=== PATIENT | male | born 1955 | race Caucasian/White ===

== ENCOUNTER 2020-10-13 13:00 | Emergency (ER) | payer BC, MEDICARE ==
[2020-10-13] MEDS ORDERED: SODIUM CHLORIDE 0.9% 1,000 ML IV STA (13:12)
[2020-10-13 13:55] LABS: Albumin 4.3 g/dL (3.5-5.0); Calcium 9.1 mg/dL (8.4-10.2); Potassium 4.3 mmol/L (3.5-5.1); Total Bilirubin 1.3 mg/dL (0.2-1.3); Total Protein 7.2 g/dL (6.3-8.2)
[2020-10-13 13:59] LABS: INR 0.9 (<1.2); Partial Thromboplastin Time 22.3 sec (22.0-30.0); Prothrombin Time 10.2 sec (9.0-12.0)
[2020-10-13 14:08] LABS: Basophils % (A) 1 %; Eosinophils # (A) 0.1 k/uL (0-0.7); Eosinophils % (A) 1 %; HCT 52.9 % (39.0-53.0); HGB 17.8 gm/dL (13.0-17.5); Lymphocytes # (A) 1.4 k/uL (1.0-4.8); Lymphocytes % (A) 20 %; MCH 29.7 pg (25.0-35.0); MCHC 33.6 g/dL (31.0-37.0); MCV 88.3 fL (80.0-100.0); Mean Platelet Volume 7.5; Monocytes % (A) 14 %; Neutrophils # (A) 4.2 k/uL (1.3-7.7); Neutrophils % (A) 62 %; Platelet Count 258 k/uL (150-450); RBC 5.99 m/uL (4.30-5.90); RDW 12.9 % (11.5-15.5); WBC 6.9 k/uL (3.8-10.6)
--- NOTE | 2020-10-13 14:16 | XR ---
KUB HISTORY: Pain and vomiting Frontal KUB and 2 images Lung bases are clear. There are air-fluid levels without bowel distention noted in the midabdomen. No pneumoperitoneum or suspicious calcification is evident. IMPRESSION: Correlate for small bowel obstruction
--- NOTE | 2020-10-13 16:08 | CT ---
EXAMINATION TYPE: CT abdomen pelvis w con DATE OF EXAM: 10/13/2020 COMPARISON: None HISTORY: Abdominal pain, abnormal plain film CT DLP: 1287.5 mGycm Automated exposure control for dose reduction was used. TECHNIQUE: Helical acquisition of images from the lung bases through the pelvis have been completed. CONTRAST: Performed without Oral Contrast and with IV Contrast, patient injected with 100 mL of Isovue 300. FINDINGS: Calcified right hilar node suggests underlying old granulomatous disease LUNG BASES: There are some basilar atelectatic changes, no pleural or pericardial effusion AORTA: No significant abnormality is appreciated. LIVER/GB: No significant abnormality is appreciated. PANCREAS: No significant abnormality is seen. SPLEEN: Calcified granuloma is seen. ADRENALS: No significant abnormality is seen. KIDNEYS: No significant abnormality is seen. REPRODUCTIVE ORGANS: No significant abnormality is seen BOWEL: There are dilated small bowel loops which are fluid-filled. A transition point is not identif ied with certainty however. FREE AIR: No Free Air visible. ASCITES: None visible. PELVIC ADENOPATHY: None visualized. RETROPERITONEAL ADENOPATHY: No Retroperitoneal Adenopathy visible. URINARY BLADDER: No significant abnormality is seen. OSSEOUS STRUCTURES: Degenerative disc changes are present with facet arthropathy especially in the l ower lumbar spine. IMPRESSION: SMALL BOWEL OBSTRUCTION NOT EXCLUDED ALTHOUGH A CLEAR TRANSITION POINT IS NOT IDENTIFIED WITH CERTAIN TY. FINDINGS COULD REPRESENT AN ILEUS. FOLLOW-UP INDICATED. OLD GRANULOMATOUS DISEASE.
--- NOTE | 2020-10-13 17:24 | ED ---
Abdominal Pain HPI - General Chief Complaint: Abdominal Pain Stated Complaint: epigastric pain, belching Time Seen by Provider: 10/13/20 13:12 Source: patient Mode of arrival: ambulatory Limitations: no limitations - History of Present Illness Initial Comments: Chad is a 65-year-old male presents the ER today via private vehicle for evaluation of 1 week of abdominal pain. Patient reports that anytime he eats he gets pain that radiated across bilateral upper quadrants and epigastric region. Pain does not occur when he is not eating. Abdominal pain is associated with nausea. Patient did have some vomiting last Wednesday and Wednesday he was nonbloody nonbilious. No vomiting since that time. Patient's last bowel movement was or Wednesday but states he has not been eating solid food this week. Patient denies any history of any abdominal surgeries. states that she has been trying to get him to come to the hospital for a number of days and today decided she would either call 911 or make him from the hospital so he agreed. - Related Data Home Medications Medication Instructions Recorded Confirmed Cholecalciferol [Vitamin D3] 1,000 unit PO DAILY 10/24/15 10/13/20 Atorvastatin [Lipitor] 80 mg PO HS 10/13/20 10/13/20 Empagliflozin [Jardiance] 10 mg PO DAILY 10/13/20 10/13/20 Gabapentin [Neurontin] 400 mg PO BID 10/13/20 10/13/20 Insulin Degludec/Liraglutide 22 unit SQ HS 10/13/20 10/13/20 [Xultophy 100 Unit-3.6MG/ml Pen] Nortriptyline [Pamelor] 50 mg PO HS 10/13/20 10/13/20 Ofatumumab [Kesimpta Pen] 20 mg SQ Q30D 10/13/20 10/13/20 Allergies Allergy/AdvReac Type Severity Reaction Status Date / Time No Known Allergies Allergy Verified 10/13/20 14:12 Review of Systems ROS Statement: Those systems with pertinent positive or pertinent negative responses have been documented in the HPI. ROS Other: All systems not noted in ROS Statement are negative. Past Medical History Past Medical History: Diabetes Mellitus, Hyperlipidemia Additional Past Medical History / Comment(s): MS History of Any Multi-Drug Resistant Organisms: None Reported Past Surgical History: No Surgical Hx Reported Past Psychological History: No Psychological Hx Reported Smoking Status: Never smoker Past Alcohol Use History: Occasional Past Drug Use History: None Reported General Exam - General Exam Comments Initial Comments: Physical Exam GENERAL: Patient is well-developed and well-nourished. Patient is nontoxic and well- hydrated and is in no distress. HENT: Normocephalic, Atraumatic. EYES: PERRL, EOMI PULMONARY: Unlabored respirations. No audible rales rhonchi or wheezing was noted. CARDIOVASCULAR: There is a regular rate and rhythm without any murmurs gallops or rubs. ABDOMEN: Mild distention, minimal tenderness Soft with normal bowel sounds. SKIN: Skin is clear with no lesions or rashes and otherwise unremarkable. : Deferred NEUROLOGIC: Patient is alert and oriented x3. Moving all extremities spontaneously MUSCULOSKELETAL: Normal extremities with adequate strength and full range of motion. No lower extremity swelling or edema. No calf tenderness. PSYCHIATRIC: Normal psychiatric evaluation. Limitations: no limitations Course Vital Signs 10/13/20 10/13/20 10/13/20 13:06 15:33 17:59 Temperature 98.5 F 98.0 F Pulse Rate 101 H 75 78 Respiratory 18 18 19 Rate Blood Pressure 153/84 169/89 127/74 O2 Sat by Pulse 98 96 99 Oximetry Medical Decision Making - Medical Decision Making Patient was seen and evaluated history is obtained from patient and at bedside Labs ordered and revealed a mildly elevated lipase mildly elevated lactic 2.1 Patient received IV fluids Computed tomography scan was obtained and revealed no inflammation of the pancreas possible small bowel instruction versus ileus Results were discussed with the patient and his at bedside. I did recommend the patient stay for observation, IV fluids, nothing by mouth diet and possible evaluation by surgeon. Patient refused to stay. Patient was able to tolerate oral intake, he drank a glass of water. He did have some indigestion and burping after drinking but no vomiting. I again encouraged the patient to stay. When I advised the patient "I think he should stay to be evaluated" patient responded with "what you think and was is going to happen are 2 different things". Patient's is quite upset that he is refusing to stay. I reiterated multiple times to the patient with the plan would be if he stayed with the benefits are. However patient is tolerating oral intake, no signs of dehydration. Patient will manage ileus at home with clear liquid diet. Return parameters were discussed and the patient was discharged home. - Lab Data Result diagrams: 10/13/20 13:30 10/13/20 13:30 Lab Results 10/13/20 10/13/20 10/13/20 Range/Units 13:30 13:30 13:30 WBC 6.9 (3.8-10.6) k/uL RBC 5.99 H (4.30-5.90) m/uL Hgb 17.8 H (13.0-17.5) gm/dL Hct 52.9 (39.0-53.0) % MCV 88.3 (80.0-100.0) fL MCH 29.7 (25.0-35.0) pg MCHC 33.6 (31.0-37.0) g/dL RDW 12.9 (11.5-15.5) % Plt Count 258 (150-450) k/uL MPV 7.5 Neutrophils % 62 % Lymphocytes % 20 % Monocytes % 14 % Eosinophils % 1 % Basophils % 1 % Neutrophils # 4.2 (1.3-7.7) k/uL Lymphocytes # 1.4 (1.0-4.8) k/uL Monocytes # 1.0 (0-1.0) k/uL Eosinophils # 0.1 (0-0.7) k/uL Basophils # 0.0 (0-0.2) k/uL PT (9.0-12.0) sec INR (<1.2) APTT (22.0-30.0) sec Sodium 135 L (137-145) mmol/L Potassium 4.3 (3.5-5.1) mmol/L Chloride 98 (98-107) mmol/L Carbon Dioxide 28 (22-30) mmol/L Anion Gap 9 mmol/L BUN 22 H (9-20) mg/dL Creatinine 1.03 (0.66-1.25) mg/dL Est GFR (CKD-EPI)AfAm 88 (>60 ml/min/1.73 sqM) Est GFR (CKD-EPI)NonAf 76 (>60 ml/min/1.73 sqM) Glucose 332 H (74-99) mg/dL Lactic Ac Sepsis Rflx Plasma Lactic Acid Barry (0.7-2.0) mmol/L Calcium 9.1 (8.4-10.2) mg/dL Total Bilirubin 1.3 (0.2-1.3) mg/dL AST 29 (17-59) U/L ALT 42 (4-49) U/L Alkaline Phosphatase 121 (38-126) U/L Troponin I <0.012 (0.000-0.034) ng/mL Total Protein 7.2 (6.3-8.2) g/dL Albumin 4.3 (3.5-5.0) g/dL Amylase 49 (30-110) U/L Lipase 311 H (23-300) U/L 10/13/20 10/13/20 10/13/20 Range/Units 13:30 13:30 14:12 WBC (3.8-10.6) k/uL RBC (4.30-5.90) m/uL Hgb (13.0-17.5) gm/dL Hct (39.0-53.0) % MCV (80.0-100.0) fL MCH (25.0-35.0) pg MCHC (31.0-37.0) g/dL RDW (11.5-15.5) % Plt Count (150-450) k/uL MPV Neutrophils % % Lymphocytes % % Monocytes % % Eosinophils % % Basophils % % Neutrophils # (1.3-7.7) k/uL Lymphocytes # (1.0-4.8) k/uL Monocytes # (0-1.0) k/uL Eosinophils # (0-0.7) k/uL Basophils # (0-0.2) k/uL PT 10.2 (9.0-12.0) sec INR 0.9 (<1.2) APTT 22.3 (22.0-30.0) sec Sodium (137-145) mmol/L Potassium (3.5-5.1) mmol/L Chloride (98-107) mmol/L Carbon Dioxide (22-30) mmol/L Anion Gap mmol/L BUN (9-20) mg/dL Creatinine (0.66-1.25) mg/dL Est GFR (CKD-EPI)AfAm (>60 ml/min/1.73 sqM) Est GFR (CKD-EPI)NonAf (>60 ml/min/1.73 sqM) Glucose (74-99) mg/dL Lactic Ac Sepsis Rflx Y Plasma Lactic Acid Barry 2.1 H* (0.7-2.0) mmol/L Calcium (8.4-10.2) mg/dL Total Bilirubin (0.2-1.3) mg/dL AST (17-59) U/L ALT (4-49) U/L Alkaline Phosphatase (38-126) U/L Troponin I (0.000-0.034) ng/mL Total Protein (6.3-8.2) g/dL Albumin (3.5-5.0) g/dL Amylase (30-110) U/L Lipase (23-300) U/L 10/13/20 Range/Units 16:34 WBC (3.8-10.6) k/uL RBC (4.30-5.90) m/uL Hgb (13.0-17.5) gm/dL Hct (39.0-53.0) % MCV (80.0-100.0) fL MCH (25.0-35.0) pg MCHC (31.0-37.0) g/dL RDW (11.5-15.5) % Plt Count (150-450) k/uL MPV Neutrophils % % Lymphocytes % % Monocytes % % Eosinophils % % Basophils % % Neutrophils # (1.3-7.7) k/uL Lymphocytes # (1.0-4.8) k/uL Monocytes # (0-1.0) k/uL Eosinophils # (0-0.7) k/uL Basophils # (0-0.2) k/uL PT (9.0-12.0) sec INR (<1.2) APTT (22.0-30.0) sec Sodium (137-145) mmol/L Potassium (3.5-5.1) mmol/L Chloride (98-107) mmol/L Carbon Dioxide (22-30) mmol/L Anion Gap mmol/L BUN (9-20) mg/dL Creatinine (0.66-1.25) mg/dL Est GFR (CKD-EPI)AfAm (>60 ml/min/1.73 sqM) Est GFR (CKD-EPI)NonAf (>60 ml/min/1.73 sqM) Glucose (74-99) mg/dL Lactic Ac Sepsis Rflx Plasma Lactic Acid Barry 1.4 (0.7-2.0) mmol/L Calcium (8.4-10.2) mg/dL Total Bilirubin (0.2-1.3) mg/dL AST (17-59) U/L ALT (4-49) U/L Alkaline Phosphatase (38-126) U/L Troponin I (0.000-0.034) ng/mL Total Protein (6.3-8.2) g/dL Albumin (3.5-5.0) g/dL Amylase (30-110) U/L Lipase (23-300) U/L Disposition Clinical Impression: Pancreatitis, Ileus Disposition: HOME SELF-CARE Condition: Undetermined Is patient prescribed a controlled substance at d/c from ED?: No Referrals: Allyson Pardo MD [Primary Care Provider] - 1-2 days
[2020-10-13 18:00] VITALS: BP 127/74; PULSE 78; RESP 19; TEMP 98
== END 2020-10-13 18:00 | disposition home or self-care (01) ==
LOC: EC 13:00
DX: K56.7 Ileus, unspecified (principal); K85.90 Acute pancreatitis without necrosis or infection, unspecified; E11.9 Type 2 diabetes mellitus without complications; E78.5 Hyperlipidemia, unspecified; Z79.4 Long term (current) use of insulin
CPT/HCPCS: 93005; 80053; 82150; 83605; 83690; 84484; 85025; 85610; 85730; 74018; 74177; 99284; 96360; Q9967; 36415

== ENCOUNTER → 2022-06-29 | Outpatient (CLI) | payer MEDICARE ==
--- NOTE | 2022-06-30 09:09 | MR ---
EXAMINATION TYPE: MR brain/cspine wo/w DATE OF EXAM: 06/29/2022 3:54 PM CLINICAL INDICATION:Male, 67 years old with history of G35 MULTIPLE SCLEROSIS; COMPARISON: CT brain 10/24/2015 TECHNIQUE: Multiplanar, multisequence images of the brain and brainstem is performed. Multi planar, multi sequence imaging was performed utilizing: T1-weighted, T2-weighted, and turbo inv ersion recovery imaging of the cervical spine. MR IV Contrast: 11 cc Gadavist FINDINGS: BRAIN: There is white matter changes which have perpendicular orientation to the lateral ventricles. These d emonstrate T2 shine through on DWI imaging. No evidence of restricted diffusion on today's exam or ab normal enhancement. There is no extra-axial fluid collection. The ventricular system and cisternal s paces are normal in size and appearance. The brain volume is age appropriate. Susceptibility weighte d imaging demonstrates blooming artifact within the caudate nucleus and basal ganglia bilaterally sug gestive of calcifications or prior hemorrhage. There is also blooming artifact within the areas of wh ite matter changes. Midline structures demonstrate normal morphology. The craniocervical junction appears within normal limits. Post contrast images demonstrate no abnormal enhancement. The dural venous sinuses appear pa tent. The visualized sinuses are clear and the globes are intact. C-SPINE: Alignment: The cervical vertebral bodies have preserved heights. Alignment is within normal limits gi jayesh patient positioning. Bones: Bone signal is within normal limits. Multilevel degenerative disc disease is noted and most p ronounced at the C3-C4 vertebral levels. Cord: The spinal cord is unremarkable with regards to their signal intensity and morphology. The medu lla oblongata at the level of the foramen magnum just superior to C1 demonstrates high T2 signal on t he left best appreciated on MRI brain imaging series 401 image 2. Discs: Multilevel disc desiccation is present. C2-C3: No significant disc pathology. The spinal canal is patent. No neural foraminal stenosis. C3-C4: A disc osteophyte complex with central disc protrusion with moderate spinal canal stenosis. B ilateral facet and uncovertebral joint arthropathy are present with moderate bilateral neural foramin al stenosis. C4-C5: No significant disc pathology. The spinal canal is patent. Bilateral facet and uncovertebral joint arthropathy are present with mild bilateral neural foraminal stenosis. C5-C6: A disc osteophyte complex is present with mild spinal canal stenosis. Bilateral facet and unc overtebral joint arthropathy are present with moderate bilateral neural foraminal stenosis. C6-C7: A disc osteophyte complex is present with mild spinal canal stenosis. Bilateral facet and unc overtebral joint arthropathy are present with moderate to severe left and moderate right neural kaden inal stenosis. C7-T1: No significant disc pathology. The spinal canal is patent. No neural foraminal stenosis. IMPRESSION: 1. White matter changes within the left medulla oblongata at the level of the foramen magnum as well as the periventricular white matter without evidence for active demyelination. No evidence of intrac ranial mass, acute/subacute infarct, or abnormal enhancement. 2. C3-C4 moderate spinal canal stenosis secondary to central disc herniation.
== END | disposition home or self-care (01) ==
LOC: RADMRIMAIN 14:28
PROVIDERS: ATTEND Psychiatry & Neurology Neurology
DX: G35 Multiple sclerosis (principal); M50.31 Other cervical disc degeneration, high cervical region; R90.82 White matter disease, unspecified; M48.02 Spinal stenosis, cervical region
CPT/HCPCS: 70553; 72156; A9585

== ENCOUNTER → 2022-07-01 | Outpatient (CLI) | payer MEDICARE ==
--- NOTE | 2022-07-03 03:53 | MR ---
EXAMINATION TYPE: MR thoracic spine wo/w con DATE OF EXAM: 07/01/2022 COMPARISON: Correlation MRI brain and cervical spine 06/29/2022. HISTORY: 67-year-old male G35, Left sided weakness, Multiple Sclerosis. Technique: Multiplanar, multisequence images of the thoracic spine were obtained before and after adm inistration of 10 mL intravenous Gadavist gadolinium contrast. FINDINGS: The sagittal T2 counting sequence more adequately demonstrates focal increased cord signal at the C5 inferior endplate level. In retrospect, we are unable to visualize this increased signal on the 06/29 MRI due to patient motion artifact on the sagittal sequence. There is a focal disc osteophyte c omplex here at C5-C6 which contributes to a mild spinal canal stenosis with slight flattening of the ventral cord. The spinal canal stenosis higher up C3-C4 is mentioned in the separate report. There is mild to moderate degenerative disc disease throughout with desiccated and mildly narrowed di sks and small disc bulges. Vertebral body heights are preserved and alignment is maintained. Scattere d small endplate Schmorl's nodes are noted. Mild heterogeneous marrow signal but without any suspicious bone marrow replacement. No abnormal enhancement within the spinal canal is appreciated. Scattered facet degenerative change is present throughout. On the right, this contributes to mild to moderate neuroforaminal stenosis at T1-T2, T2-T3, and T3-T4. On the left, this contributes to mild to moderate neural foraminal stenosis at T1-T2 and T2-T3 as well as T10-T11. Small disc protrusions are present at multiple levels, for example, right paracentral and T2-T3, righ t paracentral T6-T7, and central right paracentral at T7-T8. However, no large focal disc herniation or significant spinal canal stenosis. The right paracentral herniation at T7-T8 focally indents the ventral cord but there is adequate dors al CSF signal. Conus medullaris is normal. Better depicted on the axial sequences, there is patchy increased cord signal change opposite the T10 -T11 level. Increased right hemicord signal at the T10 inferior endplate level. Additional increased dorsal right paramedian cord signal at the T8 superior endplate level. Refer to axial T2 series 701 images 16, 8, and 7. No prevertebral or paravertebral soft tissue abnormality seen. IMPRESSION: 1. Sagittal T2 counting sequence depicting focal increased cord signal at the C5 inferior endplate le kevin. This is not apparent on the cervical spine MRI due to patient motion on the sagittal sequence. 2. Additional patchy increased cord signal at T8, T10, and T10-T11 mostly in the right hemicord. Find ings may reflect demyelinating disease. (Note that these areas are only apparent on the axial T2 sequ ence). No enhancing lesions identified. 3. Mild to moderate multilevel degenerative disc disease and facet arthropathy. Tiny disc protrusions are present as mentioned above. The largest is at T7-T8 that focally indents the ventral cord but do es not contribute to any significant spinal canal stenosis. 4. Variable [id number] neuroforaminal narrowing especially upper thoracic spine.
== END | disposition home or self-care (01) ==
LOC: RADMRIMAIN 13:19
PROVIDERS: ATTEND Psychiatry & Neurology Neurology
DX: M51.34 Other intervertebral disc degeneration, thoracic region (principal); M47.814 Spondylosis without myelopathy or radiculopathy, thoracic region; M51.24 Other intervertebral disc displacement, thoracic region; M99.73 Connective tissue and disc stenosis of intervertebral foramina of lumbar region; G35 Multiple sclerosis
CPT/HCPCS: 72157; A9585

== ENCOUNTER → 2023-07-09 | Outpatient (CLI) | payer MEDICARE ==
--- NOTE | 2023-07-11 15:36 | MR ---
EXAMINATION TYPE: MR brain wo/w con DATE OF EXAM: 07/09/2023 COMPARISON: 06/29/2022 HISTORY: MS follow-up. CONTRAST: Performed utilizing 10 mL intravenous Gadavist gadolinium contrast. TECHNIQUE: Multiplanar, multiecho imaging on a 3.0 Umu magnet is performed through the brain. Stud y is performed within 24 hours of arrival to the hospital. The craniovertebral junction is normal. The pituitary is normal. Diffusion-weighted imaging is performed. There is some mild hyperintensity on diffusion-weighted angie ging within the left periventricular white matter. These were present previously. There may be a new hyperintensity within the subcortical white matter right frontal lobe. Series 303 image 184. Additional scattered periventricular white matter changes are present, findings can be compatible wit h multiple sclerosis. Inversion recovery weighted sequences better visualize these areas and appear t o correspond to prior examination and diffusion-weighted imaging. Ventricles and sulci are appropriate for the patient age. IMPRESSION: 1. There is a new 0.6 cm white matter change subcortical right frontal lobe white matter can be cecil tible with multiple sclerosis. 2. Additional white matter changes appear stable over the interval.
== END | disposition home or self-care (01) ==
LOC: RADMRIMAIN 07:02
PROVIDERS: ATTEND Psychiatry & Neurology Neurology
DX: G35 Multiple sclerosis (principal); R90.82 White matter disease, unspecified
CPT/HCPCS: 70553; A9585

== ENCOUNTER → 2023-07-17 | Outpatient (CLI) | payer MEDICARE ==
--- NOTE | 2023-07-20 17:44 | MR ---
EXAMINATION TYPE: MR cspine/tspine wo/w con DATE OF EXAM: 07/17/2023 8:57 AM CLINICAL INDICATION:Male, 68 years old with history of G35 MS; PHH, MS, COMPARISON: 06/29/2022, 07/01/2022. TECHNIQUE: Multi planar, multi sequence imaging was performed utilizing: T1-weighted, T2-weighted, a nd turbo inversion recovery imaging of the cervical and thoracic spine. MR contrast: IV Contrast: 10 cc Gadavist, None. FINDINGS: CERVICAL: Alignment: The cervical vertebral bodies have preserved heights. Alignment is within normal limits gi jayesh patient positioning. Bones: Scattered Modic endplate changes with osteophytes and disc space narrowing. Multilevel degener ative disc disease is noted and most pronounced at the C5-C7 vertebral levels. Cord: Limited change with increased cord signal at the level of C5 measuring 4 mm x 6 mm. No abnormal postcontrast enhancement. Discs: Multilevel disc desiccation is present. C2-C3: No significant disc pathology. The spinal canal is patent. No neural foraminal stenosis. C3-C4: No significant disc pathology. The spinal canal is patent. Bilateral facet and uncovertebral joint arthropathy are present with moderate bilateral neural foraminal stenosis. C4-C5: No significant disc pathology. The spinal canal is patent. Bilateral facet and uncovertebral joint arthropathy are present with mild bilateral neural foraminal stenosis. C5-C6: No significant disc pathology. The spinal canal is patent. Bilateral facet and uncovertebral joint arthropathy are present with moderate bilateral neural foraminal stenosis. C6-C7: No significant disc pathology. The spinal canal is patent. Bilateral facet and uncovertebral joint arthropathy are present with moderate bilateral neural foraminal stenosis. C7-T1: No significant disc pathology. The spinal canal is patent. Bilateral facet and uncovertebral joint arthropathy are present with mild bilateral neural foraminal stenosis. THORACIC: A T7-T8 central disc protrusion versus osteophyte mildly impresses upon the spinal cord the re is mild cord signal at this level. No evidence significant spinal canal or neural foraminal stenos is. Spinal cord is is otherwise without abnormal cord signal. No abnormal postcontrast enhancement. No abnormal postcontrast enhancement within the spinal cord of the thoracic spine. Other: None. IMPRESSION: 1. No abnormal postcontrast enhancement to suggest active demyelination. There is white matter brown es within the spinal canal at the level of C5 measuring 4 x 6 mm which appears stable from prior on 1 08/29/2021. 2. T7-T8 disc protrusion which impresses upon the spinal cord. Mild cord signal at this level. Unabl e to compare to prior due to PACS error with the thoracic T-spine on 07/01/2022 images not loading. 3. No evidence for significant spinal canal stenosis.
== END | disposition home or self-care (01) ==
LOC: RADMRIMAIN 07:26
PROVIDERS: ATTEND Psychiatry & Neurology Neurology
DX: G93.89 Other specified disorders of brain (principal); G35 Multiple sclerosis; M51.24 Other intervertebral disc displacement, thoracic region
CPT/HCPCS: 72156; 72157; A9585